=== PATIENT | female | born 2000 | race Two or more races ===

== ENCOUNTER 2025-05-22 09:35 | Inpatient (IN) | payer MEDICAID, SELFPAY ==
[2025-05-22] VITALS (166 sets, daily range): BP systolic 104–156; BP diastolic 56–96; PULSE 77–133; RESP 18–99; TEMP 36.9–38.4; O2SAT 88–100; BMI 37.5
[2025-05-22] MEDS: RINGERS LACTATED 1000 ML 1,000 ML 100 ML IV ×3 (10:12→13:08)
--- NOTE | 2025-05-22 10:20 | PD.LDHP ---
Documentation for date of: 05/22/25 OB Labor/Induct. HPI History of Present Illness Comments: H and P dictated on STAT line in [employer] #9: [id number]. EFW 7'2 Meds Home Medications and Allergies Allergies Allergy/AdvReac Type Severity Reaction Status Date / Time ibuprofen (From Motrin) Allergy Verified 05/22/25 09:44 OB Exam Physical Exam Vital signs: Pulse BP 85 145/89 H 05/22/25 09:48 05/22/25 09:48
[2025-05-22 10:29] LABS: Basophils # (Auto) 0.1 Thou/mm3 (0.0-0.2); Basophils % (Auto) 0 % (0-2.5); Eosinophils # (Auto) 0.0 Thou/mm3 (0.0-0.5); Eosinophils % (Auto) 0 % (0-10); Hematocrit 41.0 % (36.0-46.0); Hemoglobin 13.8 g/dL (12.0-16.0); Immature Granulocytes Auto 0.08 Thou/mm3 (0.00-0.00); Lymphocytes # (Auto) 1.9 Thou/mm3 (1.0-4.8); Lymphocytes % (Auto) 11 % (10-50); Mean Corpuscular HGB Conc 33.7 g/dl (31.0-37.0); Mean Corpuscular Hemoglobin 30.9 pg (25.0-35.0); Mean Corpuscular Volume 92 fL (80-100); Monocytes # (Auto) 0.9 Thou/mm3 (0.0-0.8); Monocytes % (Auto) 5 % (0-12); Neutrophils # (Auto) 14.0 Thou/mm3 (1.8-7.7); Neutrophils % (Auto) 83 % (37-80); Nucleated Red Blood Cell # 0.00 Thou/mm3 (0.00-0.00); Nucleated Red Blood Cell % 0 /100 WBC (0); Platelet Count 267 Thou/mm3 (140-440); RDW Standard Deviation 47.4 fL (36.4-46.3); Red Blood Count 4.47 Miln/mm3 (4.00-5.20); White Blood Count 16.9 Thou/mm3 (3.6-11.0)
[2025-05-22 11:09] LABS: Syphilis Nonreactive (Nonreactive)
--- NOTE | 2025-05-22 11:30 | ESHP_ITS ---
RE: JASMINA MENDES : 2000 DATE OF ADMISSION: 05/22/2025 HISTORY OF PRESENT ILLNESS: This is a 24 year old 1, para 0 with due date of 05/29/2025 with intrauterine at 39 weeks and 0 days, who presents to labor and delivery complaining of contractions and is noted by RN to be 5 cm 90% effaced and 0 station with category 1 tracing. The patient initially presented with elevated blood pressure of 146/85. The patient denies any headache, change of vision or right upper quadrant pain. She had undergone blood work on 05/20/2025 for lower extremity edema in the office and was found to have normal [facility] blood work. A 24-hour urine collection for protein was ordered and not completed as the patient came in labor today. She denies any swelling in her face or hands. PAST MEDICAL HISTORY: Rubella non-immune. Lower extremity edema. FAMILY HISTORY: Nephew autism. PAST SURGICAL HISTORY: Denies. MEDICATIONS: multivitamin 1 p.o. daily. SOCIAL HISTORY: She denies any alcohol, drug use or smoking. ALLERGIES: IBUPROFEN. REVIEW OF SYSTEMS: She denies any headache, change of vision or right upper quadrant pain. She denies any flank pain or lower extremity pain. PHYSICAL EXAMINATION: VITAL SIGNS: Blood pressure is 146/86, heart rate is 92, respiration 18. Temperature is 98.7. HEENT: Oropharynx and sclerae clear. LUNGS: Clear to auscultation bilaterally. HEART: Regular rate and rhythm. ABDOMEN: Gravid consistent with estimated weight. Estimated weight is 7 pounds 2 ounces. PELVIC: Per RN 5 cm 90% and 0 station vertex intact. EXTREMITIES: +2 bilateral lower extremity edema. SKIN: No gross rashes or lesions. NEUROLOGIC: No focal deficit. ASSESSMENT AND PLAN: Intrauterine at 39 weeks and 0 days, labor. Gestational Hypertension rule out Preeclampsia without severe features. PIH labs. Maintain BP < 160/110.Anticipate spontaneous vaginal delivery. Informed consent was obtained. The patient made aware of the risks, complications, alternatives and benefits of operative vaginal delivery and delivery and agrees with these modes of delivery if indicated. DT: 10:19:28 TT: 11:09:00 Ref: [id number] - TID: [id number] [facility]
[2025-05-22 12:21] LABS: Alanine Aminotransferase 8 U/L (10-49); Albumin, Serum 3.9 gm/dL (3.5-5.0); Albumin/Globulin Ratio 1.9 (1.2-2.2); Alkaline Phosphatase 222 U/L (46-116); Anion Gap 13 (7-16); Aspartate Amino Transferase 18 U/L (0-34); BUN/Creatinine Ratio 10 Ratio (12-20); Bilirubin,Total 0.5 mg/dL (0.3-1.2); Blood Urea Nitrogen < 5 mg/dL (9-23); Calcium 9.3 mg/dL (8.3-10.6); Calcium (Corrected) 9.4 mg/dL (8.5-10.1); Carbon Dioxide 20.3 mMol/L (20.0-31.0); Chloride 105 mMol/L (98-107); Creatinine (Component) 0.5 mg/dL (0.6-1.3); Estimated Creatinine Clearance 185.8 mL/min (>60); Globulin 2.1 gm/dL (2.3-3.5); Glucose 82 mg/dL (74-106); Osmolality,Calculated 271 (275-295); Potassium 3.9 mMol/L (3.4-5.1); Sodium 138 mMol/L (136-145); Total Protein 6.0 gm/dL (5.7-8.2); Uric Acid 2.7 mg/dL (3.1-7.8); eGFR > 60 See Note
[2025-05-22 12:32] LABS: Fibrinogen 560 mg/dL (175-375); INR 0.9 (0.9-1.3); Partial Thromboplastin Time 29.9 Seconds (22.0-36.0); Prothrombin Time 9.9 Seconds (9.0-12.2)
[2025-05-22 14:09] LABS: Collection Type, Urine Clean Catch
[2025-05-22 14:21] LABS: Bilirubin,Urine Negative (Negative); Blood,Urine Trace (Negative); Clarity,Urine Clear (Clear/Hazy); Color,Urine Lt-Yellow (Lt Yel-Yel); Glucose, Urine Trace (Negative); Ketones,Urine 3+ (Negative); Leukocyte Esterase,Urine Negative (Negative); Nitrite,Urine Negative (Negative); PH,Urine 6.5 (5.0-7.0); Protein,Urine Negative (Neg - Trace); RBC,Urine 12 /hpf (0-3); Specific Gravity,Urine 1.011 (1.001-1.035); Squamous Epithelial Cell,Urine < 1 /hpf (0-5); Urobilinogen,Urine Negative mg/dL (0.0-1.0); WBC,Urine 1 /hpf (0-5)
[2025-05-22] MEDS: ACETAMINOPHEN IVPB 1,000 MG/100 ML VIAL 250 MG IV (18:07)
[2025-05-22] MEDS: Ampicillin Inj 2,000 MG in SODIUM CHLORIDE 0.9% (POP) 100 ML 100 MG IV (18:26)
[2025-05-22] MEDS: OXYTOCIN in NS 20 units 20 UNIT/1,000 ML BAG 125 UNIT IV (19:05)
[2025-05-22] MEDS: METHYLERGONOVINE INJ 0.2 MG/ML VIAL IM (19:12)
--- NOTE | 2025-05-22 19:27 | PD.LDDS ---
DS: Providers Provider Date of admission: 05/22/25 09:35 Primary care physician: Physician No Primary/Family Admitting Provider: Deng Frias MD Attending Provider on Admission: Deng Frias MD Attending Provider on DC: Deng Frias MD Discharging Provider: Deng Frias MD DS: Diagnosis Problem List Completed Was Problem List Reviewed/Reconciled?: Yes Summary/Hosp Course Peripartum Data Delivery Method: Normal Vaginal Delivery (complicated by shoulder dystocia, uterine atony , chorioamnionitis and hemorrhge. ) Time Spent with Patient Time attestation: Total time spent providing and/or coordinating discharge services: Exam Vital Signs Temp Pulse Resp BP Pulse Ox 99.2 F 99 18 128/60 99 05/22/25 18:37 05/22/25 19:18 05/22/25 10:37 05/22/25 19:18 05/22/25 19:23 Discharge Plan Plan Patient Disposition: HOME (Self Care) Patient condition on transfer: Stable Prescriptions/Referrals Referrals: No Primary/Family,Physician [Primary Care Provider] Patient/Caregiver Discharge Instructions Discharge Activity: activity as tolerated Other Discharge Activity Instructions:: Follow up office 6 weeks. A Rx for Tylenol was sent to [facility] from the office. Print Language: French Stand Alone Forms: Akanksha Award Info., Patient Portal Info Letter Discharge Order Discharge Orders: Discharge (Routine); Ordered 05/24/25 Ordered By: Deng Frias Planned Discharge Date 05/24/25
[2025-05-22] MEDS: GENTAMICIN/NS 80 MG IVPB 80 MG/50 ML PIGGYBACK 50 MG IV (19:33)
[2025-05-22] MEDS: BENZO/LANO/ALOE (Dermoplast) 60 GM CAN 1 SPRAY TOP (19:46)
[2025-05-23] VITALS: BP 112/70; PULSE 108; RESP 18; TEMP 37.2; O2SAT 97
[2025-05-23] MEDS: AMPICILLIN/SULBAC INJ 3 GM in SODIUM CHLORIDE 0.9% (POP) 100 ML IV ×4 (00:24→18:50)
[2025-05-23 01:47] LABS: Basophils # (Auto) 0.1 Thou/mm3 (0.0-0.2); Basophils % (Auto) 0 % (0-2.5); Eosinophils # (Auto) 0.0 Thou/mm3 (0.0-0.5); Eosinophils % (Auto) 0 % (0-10); Hematocrit 38.6 % (36.0-46.0); Hemoglobin 12.9 g/dL (12.0-16.0); Immature Granulocytes Auto 0.09 Thou/mm3 (0.00-0.00); Lymphocytes # (Auto) 1.9 Thou/mm3 (1.0-4.8); Lymphocytes % (Auto) 10 % (10-50); Mean Corpuscular HGB Conc 33.4 g/dl (31.0-37.0); Mean Corpuscular Hemoglobin 31.0 pg (25.0-35.0); Mean Corpuscular Volume 93 fL (80-100); Monocytes # (Auto) 1.2 Thou/mm3 (0.0-0.8); Monocytes % (Auto) 6 % (0-12); Neutrophils # (Auto) 15.1 Thou/mm3 (1.8-7.7); Neutrophils % (Auto) 83 % (37-80); Nucleated Red Blood Cell # 0.00 Thou/mm3 (0.00-0.00); Nucleated Red Blood Cell % 0 /100 WBC (0); Platelet Count 262 Thou/mm3 (140-440); RDW Standard Deviation 48.1 fL (36.4-46.3); Red Blood Count 4.16 Miln/mm3 (4.00-5.20); White Blood Count 18.3 Thou/mm3 (3.6-11.0)
[2025-05-23 04:30] VITALS: BP 120/74; RESP 18; TEMP 37.2; O2SAT 97
[2025-05-23 07:15] VITALS: BP 107/66; PULSE 102; RESP 18; TEMP 36.9; O2SAT 97
[2025-05-23] MEDS: ACETAMINOPHEN 325 MG TABLET 650 MG PO ×2 (07:49→16:51)
[2025-05-23] MEDS: DOCUSATE SOD 100 MG CAPSULE PO (07:50)
--- NOTE | 2025-05-23 07:52 | PD.LDDELS ---
Shoulder Dystocia General Time head delivered:: 19:00 Traction performed:: none at any time Maneuvers/Procedures Tia: Order Maneuver Performed:: 1 Time begun:: 19:00 Time ended:: 19:04 Performed by:: Jesika BRANTLEY and Graciela BRANTLEY suprapubic pressure: Order Maneuver Performed:: 2 Time begun:: 19:01 Time ended:: 19:04 Performed by:: Graciela BRANTLEY Wood's: Order Maneuver Performed:: 3 Time begun:: 19:03 Time ended:: 19:04 Performed by:: Dr Frias Additional Comments: Unable to deliver the posterior arm (too tight to move arm) therefore Wood Screw Maneuver utilized which was successful in getting the right arm to release under the pubic bone concurrent with Tia and suprapubic Was fundal Pressure applied? Fundal pressure applied:: No Shoulder Under Symphisis at head delivery:: right Immediate [place] Assessment Immediate assessment:: other (decreased movement or right arm: Advanced Practice Nurse called to evaluate baby. ) Data (Hernandez) Data Hx Section: No : 1 Term: 0 : 0 Livin Abortions: Spontaneous & Theraputic: 0 Delivery Data (Hernandez) Labor Data Initiation of labor: Spontaneous Induction/Augmentation Agent: None ROM date: 05/22/25 ROM time: 11:30 Amniotic membrane rupture type: Spontaneous Amniotic fluid description: Clear Delivery Data EDC: 05/29/25 EDC calculated by:: LMP/early US confirmation Onset of labor date: 05/22/25 Onset of labor time: 06:00 Complete dilation date: 05/22/25 Complete dilation time: 18:05 Placenta delivery date: 05/22/25 Placenta delivery time: 19:09 Stage 1 total time: Labor - Stage 1 Duration 12 hours and 5 minutes Delivered by: Altagracia Delivery nurse: reba Hirschorn nurse: graciela brantley Advanced Practice Nurse at delivery: No (dr benson came in after delivery in room assessing baby) Support person(s) at delivery: and mother Other staff at delivery: faye rn, rodrigue rn, graciela andujar Delivery Method Delivery method: Normal Vaginal Delivery Presentation: Vertex position: OA Anesthesia Type Anesthesia Type: Epidural Placenta Cord blood sent to lab: Yes cord blood collection: Cord Blood Type Episiotomy Episiotomy description: None EBL Estimated blood loss (ml): 250 Umbilical Cord cord description: 3 Vessels Additional Procedures See maneuvers below Complications Complications: Shoulder Dystocia Uterine Atony : Resolved with uterotonics. [place] Data (Hernandez) Data [place]'s gender: Male Identification band number: [id number] weight (gms): 7 lb 2.64 oz Weight (pounds): 7 lbs and 2.6 ozs [place] length: 67 ft 3.09 in 1 minute: 7 5 minutes: 8 Additional Comments Additional comments: I explained to the patient that she had a complication called shoulder dystocia where the babies right shoulder was stuck behind the pubic bone and that is why we did the manevuvers we did to get the shoulder unstuck. I explained that it is a life threatening situation for the baby and sometimes despite not applying any traction to the head, the arm can experience a weakness and the Advanced Practice Nurse will assess baby and make sure baby gets the appropriate follow up he needs. All questions answered. I explained we will keep her on antibiotics to prevent her from getting a endometritis and monitor for any excessive bleeding.
--- NOTE | 2025-05-23 08:17 | ESPR_ITS ---
Subjective Subjective Interval history: Patient denies any problem or complaint, she is voiding and ambulating and tolerating regular diet, she is passing flatus. She denies any excessive vaginal bleeding. She denies any dizziness or lightheadedness. She denies any chest pain palpitation shortness of breath or lower extremity pain. She denies any flank pain. She denies in syphysis pubic area discomfort. Exam Vital Signs Temp Pulse Resp BP Pulse Ox O2 Del Method 98.4 F 102 H 18 107/66 97 Room Air 05/23/25 07:15 05/23/25 07:15 05/23/25 07:15 05/23/25 07:15 05/23/25 07:15 05/23/25 07:15 Routine Respiratory Exam Comments: Clear to auscultation bilaterally Routine Cardiovascular Exam Comments: Regular rate and rhythm Routine Abdominal Exam Comments: Fundus is firm nontender, abdomen nondistended Routine Extremities Exam Comments: Nontender Routine Back/Spine/Pelvis Exam Comments: No CVA tenderness Objective Labs 05/23/25 01:37 PST 05/22/25 11:12 Labs: Laboratory Results - last 24 hr 05/22/25 05/22/25 05/22/25 09:55 11:12 13:40 WBC 16.9 H RBC 4.47 Hgb 13.8 Hct 41.0 MCV 92 MCH 30.9 MCHC 33.7 RDW Std Deviation 47.4 H Plt Count 267 Neut % (Auto) 83 H Lymph % (Auto) 11 [place] % (Auto) 5 Eos % (Auto) 0 Baso % (Auto) 0 Neut # (Auto) 14.0 H Lymph # (Auto) 1.9 [place] # (Auto) 0.9 H Eos # (Auto) 0.0 Baso # (Auto) 0.1 Immature Gran # (Auto) 0.08 H Absolute Nucleated RBC 0.00 Immature Gran % 1 H Nucleated RBC % 0 PT 9.9 INR 0.9 APTT 29.9 Fibrinogen 560 H Sodium 138 Potassium 3.9 Chloride 105 Carbon Dioxide 20.3 Anion Gap 13 BUN < 5 L Creatinine 0.5 L Estim Creat Clear Calc 185.8 eGFR > 60 BUN/Creatinine Ratio 10 L Glucose 82 Calculated Osmolality 271 L Uric Acid 2.7 L Calcium 9.3 Corrected Calcium 9.4 Total Bilirubin 0.5 AST 18 ALT 8 L Alkaline Phosphatase 222 H Total Protein 6.0 Albumin 3.9 Globulin 2.1 L Albumin/Globulin Ratio 1.9 Ur Collection Type Clean Catch Urine Color Lt-Yellow Urine Clarity Clear Urine pH 6.5 Ur Specific [place] 1.011 Urine Protein Negative Urine Glucose (UA) Trace Urine Ketones 3+ A Urine Blood Trace Urine Nitrite Negative Urine Bilirubin Negative Urine Urobilinogen (Auto) Negative Ur Leukocyte Esterase Negative Urine RBC 12 H Urine WBC 1 Ur Squamous Epith Cells < 1 Urine Bacteria None Syphilis Serology Nonreactive Blood Type O Positive Antibody Screen NEGATIVE Crossmatch See Detail Blood Bank Wristband ID Yes 05/23/25 01:37 PST WBC 18.3 H RBC 4.16 Hgb 12.9 Hct 38.6 MCV 93 MCH 31.0 MCHC 33.4 RDW Std Deviation 48.1 H Plt Count 262 Neut % (Auto) 83 H Lymph % (Auto) 10 [place] % (Auto) 6 Eos % (Auto) 0 Baso % (Auto) 0 Neut # (Auto) 15.1 H Lymph # (Auto) 1.9 [place] # (Auto) 1.2 H Eos # (Auto) 0.0 Baso # (Auto) 0.1 Immature Gran # (Auto) 0.09 H Absolute Nucleated RBC 0.00 Immature Gran % 1 H Nucleated RBC % 0 PT INR APTT Fibrinogen Sodium Potassium Chloride Carbon Dioxide Anion Gap BUN Creatinine Estim Creat Clear Calc eGFR BUN/Creatinine Ratio Glucose Calculated Osmolality Uric Acid Calcium Corrected Calcium Total Bilirubin AST ALT Alkaline Phosphatase Total Protein Albumin Globulin Albumin/Globulin Ratio Ur Collection Type Urine Color Urine Clarity Urine pH Ur Specific [place] Urine Protein Urine Glucose (UA) Urine Ketones Urine Blood Urine Nitrite Urine Bilirubin Urine Urobilinogen (Auto) Ur Leukocyte Esterase Urine RBC Urine WBC Ur Squamous Epith Cells Urine Bacteria Syphilis Serology Blood Type Antibody Screen Crossmatch Blood Bank Wristband ID Impressions Impression: day #1 status post spontaneous vaginal delivery complicated by shoulder dystocia hemorrhage (resolved) secondary to uterine atony and chorioamnionitis Presuptive endometritis Continue IV antibiotics Possible discharge home tomorrow support Encourage ambulation
[2025-05-23 12:00] VITALS: BP 124/82; PULSE 90; RESP 17; TEMP 36.8; O2SAT 98
[2025-05-23 16:30] VITALS: BP 126/81; PULSE 94; RESP 16; TEMP 36.7; O2SAT 97
[2025-05-23 19:42] VITALS: BP 109/62; PULSE 82; RESP 18; TEMP 36.8; O2SAT 97
[2025-05-24] MEDS: AMPICILLIN/SULBAC INJ 3 GM in SODIUM CHLORIDE 0.9% (POP) 100 ML IV ×2 (00:33→06:00)
[2025-05-24 03:50] VITALS: BP 103/67; PULSE 80; RESP 16; TEMP 36.7; O2SAT 96
--- NOTE | 2025-05-24 06:24 | ESPR_ITS ---
RE: JASMINA MENDES : 2000 DATE OF SERVICE: 05/24/2025 SUBJECTIVE: day #2. Patient denies any problem or complaints. She is voiding. She is ambulating. She is tolerating diet. She is passing flatus. She denies any excessive vaginal bleeding. She denies any dizziness or lightheadedness. She denies any chest pain, palpitation, shortness of breath, flank pain, or lower extremity pain. OBJECTIVE: Vital Signs: Blood pressure is 103/67. Heart rate 80. Respirations 16. Temperature is 98.0. Pulse oximetry is 96% on room air. Lungs: Clear to auscultation bilaterally. Heart: Regular rate and rhythm. Abdomen: Fundus is firm, nontender, nondistended. Extremities: Nontender. ASSESSMENT AND PLAN: day #2 status post spontaneous vaginal delivery complicated by shoulder dystocia, chorioamnionitis, uterine atony, and hemorrhage. Hemodynamically stable. No excessive vaginal bleeding. No evidence of further infection. Plan is discharge home. Follow up in the office in 6 weeks. Discharge instructions given. I discussed with the patient the nature of her condition and recommend treatment plan. All questions answered. DT: 06:18:10 TT: 06:24:00 Ref: [id number] - TID: [id number]
[2025-05-24 07:30] VITALS: BP 115/75; PULSE 75; RESP 18; TEMP 36.7; O2SAT 99
== END 2025-05-24 12:10 | disposition home or self-care (01) | DRG 560 ==
LOC: S4SX 19:18 → S4NX 21:52
PROVIDERS: Admitting Provider Specialist; Visit Provider Specialist
DX: O13.4 Gestational [pregnancy-induced] hypertension without significant proteinuria, complicating childbirth (principal); O41.1230 Chorioamnionitis, third trimester, not applicable or unspecified; Z37.0 Single live birth; O72.1 Other immediate postpartum hemorrhage; Z3A.39 39 weeks gestation of pregnancy; O66.0 Obstructed labor due to shoulder dystocia; O75.3 Other infection during labor; N71.9 Inflammatory disease of uterus, unspecified
CPT/HCPCS: 36415; 59409; 80053; 81001; 84550; 85025; 85384; 85610; 85730; 86780; 86850; 86900; 86901; 86923; 90707; 94762; J0131; J0290; J0295; J1580; J2210; J2590; J2795; J3010; J7120; S0191; A9270